=== PATIENT | female | born 1990 | race Caucasian/White ===

== ENCOUNTER 2024-09-25 02:00 | Emergency (ER) | payer OTHER ==
[~2024-09-25] VITALS: Ht 170.2 cm; Wt 81.6 kg
[2024-09-25] MEDS ORDERED: LORAZEPAM 1 MG TABLET ONE (02:45)
[2024-09-25] MEDS: LORAZEPAM 1 MG TABLET PO ONE (02:52)
[2024-09-25] MEDS ORDERED: LORA-259 PO (03:24)
[2024-09-25 03:40] VITALS: BP 134/89; TEMP 98; O2SAT 99
== END 2024-09-25 05:17 | disposition home or self-care (01) ==
LOC: ER 02:12
DX: F15.10 Other stimulant abuse, uncomplicated (principal); Z79.899 Other long term (current) drug therapy